=== PATIENT | female | born 1975 | race Caucasian/White ===

== ENCOUNTER 2017-07-11 14:15 | Emergency (ER) | END 2017-07-11 19:33 | disposition home or self-care (01) ==

== ENCOUNTER 2018-07-10 10:47 | Emergency (ER) | payer MEDICAID, OTHER ==
[~2018-07-10] VITALS: Ht 157.5 cm; Wt 96.0 kg
[~2018-07-10 10:47] MED LIST: ALBU8.5H8 INH; AZIT250T PO; PRED20TA PO
[2018-07-10 11:14] VITALS: Ht 157.5 cm; Wt 96.0 kg
[2018-07-10] MEDS ORDERED: KETOROLAC 60 MG INJ IM STA (12:12)
[2018-07-10] MEDS ORDERED: IBUP-1542 PO (13:37)
[2018-07-10] MEDS ORDERED: TRAM50TA2 PO (13:37)
--- NOTE | 2018-07-10 13:40 | ERD ---
ER Documentation Chief Complaint Chief Complaint low back pain rad down right leg x 3 days HPI 43-year-old female presents with low back pain rating down his right leg for the last 3 days. Started with lifting heavy object. She denies any bowel or bladder incontinence, weakness. Denies any numbness in the perineal area. She also has intermittent numbness down the back of the leg. Denies any previous history of back problems. Denies any fevers or urinary complaints. ROS All systems reviewed and are negative except as per history of present illness. Medications Home Meds Active Scripts Tramadol HCl (Tramadol HCl) 50 Mg Tablet, 50 MG PO Q4 PRN for PAIN, #20 TAB Prov:ISATU NUNEZ MD 07/10/18 Ibuprofen* (Motrin*) 600 Mg Tab, 600 MG PO Q6, #30 TAB Prov:ISATU NUNEZ MD 07/10/18 Albuterol Sulfate* (Proair HFA*) 8.5 Gm Hfa.aer.ad, 2 PUFF INH Q4, #1 INHALER Prov:LUANNE VELASQUEZ DO 07/11/17 Prednisone* (Prednisone*) 20 Mg Tab, 60 MG PO DAILY for 5 Days, TAB Prov:DAYANARA VELASQUEZSTFAIZAS Hugh DO 07/11/17 Azithromycin* (Zithromax*) 250 Mg Tablet, 250 MG PO .ZPACK DIRECTED, #6 TAB TAKE 500 MG (2 TABS) THE FIRST DAY THEN 250 MG (1 TAB) DAYS 2-5 Prov:LUANNE VELASQUEZ DO 07/11/17 Allergies Allergies: Coded Allergies: No Known Allergies (Unverified Allergy, Mild, 07/11/17) PMhx/Soc Medical and Surgical Hx: pt denies Surgical Hx History of Surgery: No Anesthesia Reaction: No Hx Neurological Disorder: No Hx Respiratory Disorders: Yes (asthma ) Hx Cardiac Disorders: No Hx Psychiatric Problems: No Hx Miscellaneous Medical Probl: No Hx Alcohol Use: No Hx Substance Use: No Hx Tobacco Use: No Smoking Status: Never smoker FmHx Family History: No diabetes, No coronary disease, No other Physical Exam Vitals Vital Signs Date Temp Pulse Resp B/P (MAP) Pulse Ox O2 O2 Flow FiO2 Time Delivery Rate 07/10/18 99.3 69 18 165/84 99 11:14 (111) Physical Exam Const: No acute distress Head: Atraumatic Eyes: Normal Conjunctiva ENT: Normal External Ears, Nose and Mouth. Neck: Full range of motion. No meningismus. Resp: Clear to auscultation bilaterally Cardio: Regular rate and rhythm, no murmurs Abd: Soft, non tender, non distended. Normal bowel sounds Skin: No petechiae or rashes Back: No midline or flank tenderness. Tenderness right L4-5 paraspinous muscles with positive straight leg raise. No midline tenderness or deformities. Ext: No cyanosis, or edema Neur: Awake and alert Psych: Normal Mood and Affect Results 24 hrs Laboratory Tests Test 07/10/18 12:31 POC Beta HCG, Qualitative NEGATIVE Current Medications Medications Dose Sig/Hillary Start Time Status Last (Trade) Ordered Route PRN Stop Time Admin Dose Reason Admin Ketorolac 60 mg ONCE STAT 07/10/18 DC 07/10/18 Tromethamine IM 12:12 12:39 (Toradol) 07/10/18 12:14 Procedures/MDM Patient given Toradol 60 mg IM. HCG negative X-ray LS-Spine 3V Interpreted by me: Bones: No fracture, or lytic lesions Joints: No dislocation Foreign body: None. Impression-degenerative changes lumbar spine without acute fracture dislocation or neoplasm. Patient presents with signs and symptoms of sciatica without signs of cauda equina syndrome, epidural abscess, dislocation, additional complications. She will treated with tramadol, ibuprofen, instructions for back exercises, primary care follow-up and return precautions. The patient was stable with no new complaints during the ER course. Clinically, there is no current evidence to suggest meningitis, sepsis, acute abdomen, pneumonia, stroke, acute coronary syndrome, pulmonary embolism, aortic dissection or any other emergent condition appearing to require further evaluation or hospitalization. Patient counseled regarding my diagnostic impression and care plan. Prior to discharge all questions answered. Pt agrees with treatment plan and understands strict return precautions. Pt is instructed to follow up with primary care provider within 24- 48 hours. Precautionary instructions provided including instructions to return to the ER if not improving or for any worsening or changing symptoms or concerns. Departure Diagnosis: Primary Impression: Back pain Back pain location: low back pain Chronicity: acute Back pain laterality: right Sciatica presence: with sciatica Sciatica laterality: sciatica of right side Qualified Codes: M54.41 - Lumbago with sciatica, right side Condition: Stable Patient Instructions: Back Exercises, Lumbar, Back Pain W/ Sciatica Referrals: NO PRIMARY,CARE PHYSICIAN (PCP) Additional Instructions: X-ray shows mild arthritis. Recommend exercises at home and primary care follow-up. Recheck for new or worsening symptoms with primary care doctor. ISATU NUNEZ MD Jul 10, 2018 13:40
[2018-07-10 14:16] VITALS: BP 136/76; PULSE 65; RESP 18
== END 2018-07-10 14:18 | disposition home or self-care (01) ==
LOC: FTE 10:47
DX: M54.41 Lumbago with sciatica, right side (principal); J45.909 Unspecified asthma, uncomplicated
CPT/HCPCS: 72100; 81025; 96372; J1885; Z7502

== ENCOUNTER 2018-09-17 12:37 | Emergency (ER) | payer OTHER ==
[~2018-09-17] VITALS: Wt 91.5 kg
[~2018-09-17 12:37] MED LIST changes: +IBUP-1542 PO; +TRAM50TA2 PO
[2018-09-17 13:15] VITALS: BP 140/85; PULSE 64; RESP 20
[2018-09-17] MEDS ORDERED: ALBUTEROL 0.083% (NEB) 2.5 MG/3 ML AMP NEB STA (14:44)
[2018-09-17] MEDS ORDERED: IPRATROPIUM (NEB) 0.5 MG/2.5 ML AMP NEB STA (14:44)
--- NOTE | 2018-09-17 14:47 | ERD ---
ER Documentation Chief Complaint Chief Complaint sob since Mon. history of asthma+ ran out of inhaler. albuterol? HPI This is a pleasant 43-year-old female who presents complaining of 3 days of asthma exacerbation. She ran out of her inhaler she is unable to use that. She has a mild dry cough. No fever. She feels congested but states she is unable to clear any phlegm. No chest pain or palpitations. ROS All systems reviewed and are negative except as per history of present illness. Medications Home Meds Active Scripts Albuterol Sulfate* (Proair HFA*) 8.5 Gm Hfa.aer.ad, 2 PUFF INH Q4, #1 INHALER Prov:DYAN ESCALANTE PA-C 09/17/18 Tramadol HCl (Tramadol HCl) 50 Mg Tablet, 50 MG PO Q4 PRN for PAIN, #20 TAB Prov:ISATU NUNEZ MD 07/10/18 Ibuprofen* (Motrin*) 600 Mg Tab, 600 MG PO Q6, #30 TAB Prov:ISATU NUNEZ MD 07/10/18 Albuterol Sulfate* (Proair HFA*) 8.5 Gm Hfa.aer.ad, 2 PUFF INH Q4, #1 INHALER Prov:LUANNE VELASQUEZ DO 07/11/17 Prednisone* (Prednisone*) 20 Mg Tab, 60 MG PO DAILY for 5 Days, TAB Prov:LUANNE VELASQUEZ DO 07/11/17 Azithromycin* (Zithromax*) 250 Mg Tablet, 250 MG PO .ZPACK DIRECTED, #6 TAB TAKE 500 MG (2 TABS) THE FIRST DAY THEN 250 MG (1 TAB) DAYS 2-5 Prov:LUANNE VELASQUEZ DO 07/11/17 Allergies Allergies: Coded Allergies: No Known Allergies (Unverified Allergy, Mild, 07/11/17) PMhx/Soc History of Surgery: No Anesthesia Reaction: No Hx Neurological Disorder: No Hx Respiratory Disorders: Yes (asthma ) Hx Cardiac Disorders: No Hx Psychiatric Problems: No Hx Miscellaneous Medical Probl: No Hx Alcohol Use: No Hx Substance Use: No Hx Tobacco Use: No FmHx Family History: No diabetes Physical Exam Vitals Vital Signs Date Temp Pulse Resp B/P (MAP) Pulse Ox O2 O2 Flow FiO2 Time Delivery Rate 09/17/18 88 18 98 21 14:59 09/17/18 98.1 64 20 140/85 97 13:15 (103) Physical Exam Const: No acute distress Head: Atraumatic Eyes: Normal Conjunctiva ENT: Normal External Ears, Nose and Mouth. Neck: Full range of motion. No meningismus. Resp: Bilateral expiratory wheezing in both upper and lower lung maddox, no retractions, no use of accessory muscles Cardio: Regular rate and rhythm, no murmurs b Results 24 hrs Current Medications Medications Dose Sig/Hillary Start Time Status Last (Trade) Ordered Route PRN Stop Time Admin Dose Reason Admin Albuterol 5 mg ONCE STAT 09/17/18 DC 09/17/18 (Proventil NEB 14:44 09/17/18 14:58 0.083% (Neb)) 14:46 Ipratropium 0.5 mg ONCE STAT 09/17/18 DC 09/17/18 [place] NEB 14:44 09/17/18 14:58 (Atrovent 14:46 0.02% (Neb)) 10 mg ONCE ONCE 09/17/18 DC 09/17/18 Dexamethasone PO 15:00 09/17/18 14:59 (Decadron) 15:01 Procedures/MDM Patient presents with asthma exacerbation. She is well-appearing in no distress. Speaks in full sentences. She does have wheezing on exam. She was given Decadron and a breathing treatment with improvement and then discharged with albuterol inhaler refill. Patient counseled regarding my diagnostic impression and care plan. Prior to discharge all questions answered. Pt agrees with treatment plan and understands strict return precautions. Pt is instructed to follow up with primary care provider within 24-48 hours. Precautionary instructions provided including instructions to return to the ER if not improving or for any worsening or changing symptoms or concerns. Departure Diagnosis: Primary Impression: Asthma exacerbation Condition: Stable DYAN ESCALANTE PA-C September 17, 2018 14:47
[2018-09-17] MEDS ORDERED: ALBU8.5H8 INH (14:49)
[2018-09-17] MEDS ORDERED: DEXAMETHASONE 4 MG/ML 1 ML INJ PO ONE (15:00)
== END 2018-09-17 15:31 | disposition home or self-care (01) ==
LOC: FTE 12:37
DX: J45.901 Unspecified asthma with (acute) exacerbation (principal)
CPT/HCPCS: 94664; J1100; Z7502; Z7610

== ENCOUNTER 2018-09-20 12:08 | Emergency (ER) | payer OTHER ==
[~2018-09-20] VITALS: Ht 162.6 cm; Wt 91.9 kg
[2018-09-20 12:47] VITALS: BP 140/91; Ht 162.6 cm; Wt 91.9 kg
[2018-09-20] MEDS ORDERED: ALBUTEROL 0.083% (NEB) 2.5 MG/3 ML AMP NEB STA (13:26)
[2018-09-20] MEDS ORDERED: IPRATROPIUM (NEB) 0.5 MG/2.5 ML AMP NEB STA (13:26)
[2018-09-20] MEDS ORDERED: predniSONE 20 MG TAB PO ONE (13:30)
--- NOTE | 2018-09-20 14:15 | ERD ---
ER Documentation Chief Complaint Chief Complaint Pt with c/o sob since yesterday, hx of asthma HPI 38-year-old female with a history of asthma presents with continued complaint of shortness of breath since yesterday. Patient states that she was recently in the ER approximately 3 days ago and received a breathing treatment as well as 1 dose of steroid but she was not discharged with any steroids and she feels that is the reason why she is having continued shortness of breath. Denies lightheadedness, respiratory distress, chest pain, hemoptysis, leg swelling, leg pain. ROS All systems reviewed and are negative except as per history of present illness. Medications Home Meds Active Scripts Prednisone* (Prednisone*) 20 Mg Tab, 60 MG PO DAILY for asthma for 4 Days, TAB Prov:JORGE NEVAREZ 09/20/18 Albuterol Sulfate* (Proair HFA*) 8.5 Gm Hfa.aer.ad, 2 PUFF INH Q4, #1 INHALER Prov:DYAN ESCALANTE PA-C 09/17/18 Tramadol HCl (Tramadol HCl) 50 Mg Tablet, 50 MG PO Q4 PRN for PAIN, #20 TAB Prov:ISATU NUNEZ MD 07/10/18 Ibuprofen* (Motrin*) 600 Mg Tab, 600 MG PO Q6, #30 TAB Prov:ISATU NUNEZ MD 07/10/18 Albuterol Sulfate* (Proair HFA*) 8.5 Gm Hfa.aer.ad, 2 PUFF INH Q4, #1 INHALER Prov:LUANNE VELASQUEZ DO 07/11/17 Prednisone* (Prednisone*) 20 Mg Tab, 60 MG PO DAILY for 5 Days, TAB Prov:DAYANARA VELASQUEZSTOLOS A. DO 07/11/17 Azithromycin* (Zithromax*) 250 Mg Tablet, 250 MG PO .AnnabellePACK DIRECTED, #6 TAB TAKE 500 MG (2 TABS) THE FIRST DAY THEN 250 MG (1 TAB) DAYS 2-5 Prov:DAYANARA VELASQUEZSTOLOS ABlanquita DO 07/11/17 Allergies Allergies: Coded Allergies: No Known Allergies (Unverified Allergy, Mild, 07/11/17) PMhx/Soc Medical and Surgical Hx: pt denies Surgical Hx History of Surgery: No Anesthesia Reaction: No Hx Neurological Disorder: No Hx Respiratory Disorders: Yes (asthma ) Hx Cardiac Disorders: No Hx Psychiatric Problems: No Hx Miscellaneous Medical Probl: No Hx Alcohol Use: No Hx Substance Use: No Hx Tobacco Use: No Smoking Status: Never smoker FmHx Family History: No diabetes, No coronary disease, No other Physical Exam Vitals Vital Signs Date Temp Pulse Resp B/P (MAP) Pulse Ox O2 O2 Flow FiO2 Time Delivery Rate 09/20/18 63 18 99 Room Air 14:39 09/20/18 54 20 98 21 13:48 09/20/18 99.1 65 20 140/91 100 12:47 (107) Physical Exam Const: No acute distress Head: Atraumatic Eyes: Normal Conjunctiva ENT: Normal External Ears, Nose and Mouth. Neck: Full range of motion. No meningismus. Resp: Mild wheezing heard in lung maddox bilaterally with no rales or rhonchi noted. Equal breath sounds. Cardio: Regular rate and rhythm, no murmurs Abd: Soft, non tender, non distended. Normal bowel sounds Skin: No petechiae or rashes Back: No midline or flank tenderness Ext: No cyanosis, or edema Neur: Awake and alert Psych: Normal Mood and Affect Results 24 hrs Current Medications Medications Dose Sig/Hillary Start Time Status Last (Trade) Ordered Route PRN Stop Time Admin Dose Reason Admin Albuterol 7.5 mg ONCE STAT 09/20/18 DC 09/20/18 (Proventil NEB 13:26 09/20/18 13:47 0.083% (Neb)) 13:32 Ipratropium 0.5 mg ONCE STAT 09/20/18 DC 09/20/18 [place] NEB 13:26 09/20/18 13:47 (Atrovent 13:32 0.02% (Neb)) Prednisone 40 mg ONCE ONCE 09/20/18 DC 09/20/18 (Prednisone) PO 13:30 09/20/18 13:36 13:32 Procedures/MDM MDM: Patient's presentation is consistent with re-exacerbation of asthma. Patient was given breathing treatment in the ER and discharged discharged with 5-day course of steroids. Patient's vitals and work of breathing were within normal limits at time of discharge. I have low suspicion for status asthmaticus, respiratory distress, PE, pneumothorax, or any other emergent condition. Patient discharged with strict ER precautions. Patient advised to follow up with PMD. All questions answered at discharge. Departure Diagnosis: Primary Impression: Asthma Condition: Stable JORGE NEVAREZ September 20, 2018 14:15
[2018-09-20] MEDS ORDERED: PRED20TA PO ×2 (14:17→14:19)
[2018-09-20 14:39] VITALS: PULSE 63; RESP 18
== END 2018-09-20 14:40 | disposition home or self-care (01) ==
LOC: FTE 12:08
DX: J45.901 Unspecified asthma with (acute) exacerbation (principal)
CPT/HCPCS: 71045; 94664; J7512; Z7502; Z7610